=== PATIENT | female | born 1945 ===

== ENCOUNTER 2023-11-16 07:30 | Day surgery (SDC) | payer OTHER ==
[2023-11-12 13:43] LABS: HEMATOCRIT 39.1 % (36.0-45.00); HEMOGLOBIN 13.3 g/dL (12.0-15.00); MEAN CORPUSCULAR HEMOGLOBIN 32.2 pg (27.00-32.0); MEAN CORPUSCULAR HGB CONC 33.9 g/dl (32.0-36.0); PLATELET COUNT 324 K/uL (150-450); RED BLOOD COUNT 4.12 M/uL (4.00-6.00); RED CELL DISTRIBUTION WIDTH 14.2 % (11.5-14.5)
[2023-11-12 13:43] LABS: PH,URINE 6.5 (5.0-8.0); URINE APPEARANCE Clear; URINE BILIRRUBIN Negative (NEGATIVE); URINE BLOOD Negative; URINE COLOR Yellow; URINE GLUCOSE Negative (NEGATIVE); URINE LEUKOCYTE Negative; URINE NITRATE Negative; URINE PROTEIN Negative (NEGATIVE); URINE UROBILINOGEN 0.2 E.U./dl
[2023-11-12 13:47] LABS: URINE BACTERIA 6.2 uL (0.0-1933); URINE RBC 3.5 uL (0.0-20.8)
[2023-11-12 13:51] LABS: URINE EPITHELIAL CELLS 1.2 uL (0.0-38.8); URINE WBC 0.9 uL (0.0-23.2)
[2023-11-12 14:20] LABS: INR < 0.93; PARTIAL THROMBOPLASTIN TIME 27.2 SECONDS (22.0-34.0); PROTHROMBIN TIME 9.7 SECONDS (9.0-11.5)
[2023-11-12 14:23] LABS: ALBUMIN 3.8 gm/dL (3.4-5.0); BILIRUBIN TOTAL 0.92 mg/dL (0.3-1.2); CALCIUM 9.7 mg/dL (8.5-10.1); CREATININE SERUM 0.58 mg/dL (0.55-1.02); GFR 100.28; POTASSIUM 4.01 mEq/L (3.5-5.1); TOTAL PROTEIN 6.8 gm/dL (6.4-8.2)
[~2023-11-16 07:30] MED LIST: LOTREL 10-20 M1 EACH; SYNTHROID100 MCG
[2023-11-16] MEDS ORDERED: CEFAZOLIN SODIUM 1,000 MG VIAL ONE (11:44)
[2023-11-16] MEDS ORDERED: BUPIVACAINE HCL/PF 0.5% 30ML ML ONE (12:39)
[2023-11-16] MEDS ORDERED: ISOPROPYL ALCOHOL 30 ML OUNCE TOP ONE (13:30)
[2023-11-16] MEDS ORDERED: BUPIVACAINE HCL 30 ML VIAL IJ ONE (13:30)
[2023-11-16] MEDS ORDERED: CEFAZOLIN SODIUM 1,000 MG VIAL IV ONE (13:30)
== END 2023-11-16 16:55 | disposition home or self-care (01) ==
LOC: CIR.AMB 07:30
PROVIDERS: ATTEND Orthopaedic Surgery Hand Surgery
DX: G56.01 Carpal tunnel syndrome, right upper limb (principal); M65.321 Trigger finger, right index finger; E11.9 Type 2 diabetes mellitus without complications; Z20.822 Contact with and (suspected) exposure to COVID-19; I10 Essential (primary) hypertension

== ENCOUNTER 2023-12-21 06:52 | Day surgery (SDC) | payer OTHER ==
[~2023-12-21] VITALS: Ht 157.5 cm; Wt 55.8 kg
[~2023-12-21 06:52] MED LIST changes: +SYNTHROID175 MCG
[2023-12-21] MEDS ORDERED: CEFAZOLIN SODIUM 1,000 MG VIAL ONE ×2 (09:25→13:38)
[2023-12-21] MEDS ORDERED: BUPIVACAINE HCL/PF 0.5% 30ML ML ONE (13:38)
[2023-12-21] MEDS ORDERED: BUPIVACAINE HCL 30 ML VIAL IJ ONE (14:00)
[2023-12-21] MEDS ORDERED: CEFAZOLIN SODIUM 1,000 MG VIAL IV ONE (14:00)
[2023-12-21] MEDS ORDERED: ENALAPRILAT DIHYDRATE 1.25 MG/ML VIAL IV ONE (14:55)
== END 2023-12-21 16:05 | disposition home or self-care (01) ==
LOC: CIR.AMB 06:52
PROVIDERS: ATTEND Orthopaedic Surgery Hand Surgery
DX: G56.02 Carpal tunnel syndrome, left upper limb (principal); I10 Essential (primary) hypertension

== ENCOUNTER 2025-02-14 12:16 | Outpatient (CLI) | payer OTHER | END 2025-02-14 12:27 | disposition home or self-care (01) | LOC: RAD 12:16 | PROVIDERS: ATTEND Orthopaedic Surgery | DX: M25.562 Pain in left knee (principal); M17.12 Unilateral primary osteoarthritis, left knee ==